=== PATIENT | female | born 1975 | race Caucasian/White ===

== ENCOUNTER 2017-07-10 07:00 | Emergency (ER) | payer BC ==
[2017-07-10 07:25] VITALS: BP 91/60
--- NOTE | 2017-07-10 07:34 | UC ---
Abdominal Pain Female HPI - HPI Summary HPI Summary: 41 yo female with the acute onset yesterday afternoon of nausea/epigastric pain , f/c and mild WHITING was up all night 8/10 pain at max currently 08/27 - History of Current Complaint Chief Complaint: UCGeneralIllness Stated Complaint: ACHES, WHITING, STOMACH ACHE Time Seen by Provider: 07/10/17 07:26 Hx Obtained From: Patient Hx Last Menstrual Period: 06/30/17 Onset/Duration: Sudden Onset, Lasting Hours Timing: Constant Severity Initially: Moderate Severity Currently: Moderate Pain Intensity: 5 Pain Scale Used: 0-10 Numeric Location: Discrete At: LUQ, Epigastric Radiates: Yes Radiates to: Back Character: Aching Aggravating Factor(s): Movement Alleviating Factor(s): Nothing Associated Signs and Symptoms: Positive: Fever, Nausea, Diarrhea - loose stool x 1 Allergies/Adverse Reactions: Allergies Allergy/AdvReac Type Severity Reaction Status Date / Time No Known Allergies Allergy Verified 07/10/17 07:16 Home Medications: Home Medications NK [No Home Medications Reported] 07/10/17 [History Confirmed 07/10/17] PMH/Surg Hx/FS Hx/Imm Hx Previously Healthy: Yes - Surgical History Surgical History: Yes Surgery Procedure, Year, and Place: L 4th finger for fracture. - Family History Known Family History: Positive: Cardiac Disease, Hypertension, Diabetes - Social History Alcohol Use: Rare Substance Use Type: None Smoking Status (MU): Never Smoked Tobacco Review of Systems Constitutional: Fever, Chills, Fatigue Skin: Negative Eyes: Negative ENT: Negative Respiratory: Negative Cardiovascular: Negative Gastrointestinal: Abdominal Pain, Diarrhea - loose stool x 1, Nausea Genitourinary: Negative Motor: Negative Neurovascular: Negative Musculoskeletal: Myalgia Neurological: Headache Psychological: Negative Is Patient Immunocompromised?: No All Other Systems Reviewed And Are Negative: Yes Physical Exam Triage Information Reviewed: Yes Appearance: Well-Appearing, No Pain Distress, Well-Nourished, Thin Vital Signs: Initial Vital Signs Temp 99.9 F 07/10/17 07:17 Pulse 85 07/10/17 07:17 Resp 16 07/10/17 07:17 BP 91/60 07/10/17 07:17 Pulse Ox 99 07/10/17 07:17 Vital Signs Reviewed: Yes Eyes: Positive: Conjunctiva Clear ENT: Positive: Hearing grossly normal, Uvula midline. Negative: Nasal congestion, Nasal drainage, Trismus, Muffled voice Neck: Positive: Supple, Nontender, No Lymphadenopathy Respiratory: Positive: Lungs clear, Normal breath sounds, No respiratory distress, No accessory muscle use Cardiovascular: Positive: RRR, No Murmur Abdomen Description: Positive: Soft, Other: - epigastric and LUQ tenderness. Negative: Nontender Bowel Sounds: Positive: Present Musculoskeletal: Positive: ROM Intact, No Edema Neurological: Positive: Alert Psychological Exam: Normal Skin Exam: Normal Abd Pain Female Course/Dx - Course Course Of Treatment: discussed with Dr. James. to [facility] via POV. pt declines EMS - Differential Dx/Diagnosis Provider Diagnoses: abdominal pain of uncertain cause Discharge - Sign-Out/Discharge Documenting (check all that apply): Discharge - Discharge Plan Condition: Stable Disposition: [facility] Referrals: Christy Ferro MD [Primary Care Provider] - Additional Instructions: I spoke to the ER attending at [facility] (Dr. James) They are expecting you - Billing Disposition and Condition Condition: STABLE Disposition: EMTALA
== END 2017-07-10 07:55 | disposition short-term general hospital (02) ==
LOC: UCCORT 07:00
DX: R10.13 Epigastric pain (principal); R10.12 Left upper quadrant pain; Z32.02 Encounter for pregnancy test, result negative
CPT/HCPCS: 81003; 84702; 99201; G0463

== ENCOUNTER 2018-03-06 15:35 | Emergency (ER) | payer BC ==
[2018-03-06 15:52] VITALS: BP 122/68
--- NOTE | 2018-03-06 15:58 | UC ---
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 -pain/pressure over her eyes x > 10 d. no fevers. + cough, no wheezing, no asthma. -burn was on an iron. no blistreing. no dc. healing well. has a small irritation from the adhesive of mara bandage she has covering -also brings up depression. talked to her PCP Dr Iqbal about it in 08/05. she declined meds at that time and wanted to try wholistic approac. she has not been active as she always has been. significant fatigue. doesnt look forward to going to her job anymore. she has worked very hard at her career. 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 her family is in [place]. she moved from [place], [place] and [facility] back to here to be closer to family. does not have a counselor here, but would like to see one. had one in [place] in past. no SI/HI. she took 2 days of lexapro and broke into a rash ~ 2 yrs ago. would be willingto take medicine again. - History of Current Complaint Chief Complaint: UCGeneralIllness Stated Complaint: CONGESTION, COUGH, SORE THROAT Time Seen by Provider: 03/06/18 15:55 Hx Last Menstrual Period: 02/08/18 Pain Intensity: 0 - Allergies/Home Medications Allergies/Adverse Reactions: Allergies Allergy/AdvReac Type Severity Reaction Status Date / Time No Known Allergies Allergy Verified 03/06/18 15:52 PMH/Surg Hx/FS Hx/Imm Hx Previously Healthy: Yes Psychological History: Depression - Surgical History Surgical History: Yes Surgery Procedure, Year, and Place: L 4th finger for fracture. - Family History Known Family History: Positive: Cardiac Disease, Hypertension, Diabetes - Social History Alcohol Use: Rare Substance Use Type: None Smoking Status (MU): Never Smoked Tobacco Review of Systems All Other Systems Reviewed And Are Negative: Yes Constitutional: Positive: Fatigue Skin: Positive: Negative Eyes: Positive: Negative ENT: Positive: Sinus Congestion, Sinus Pain/Tenderness Respiratory: Positive: Cough Cardiovascular: Positive: Negative Gastrointestinal: Positive: Negative Genitourinary: Positive: Negative Motor: Positive: Negative Neurovascular: Positive: Negative Musculoskeletal: Positive: Negative Neurological: Positive: Negative Psychological: Positive: Depressed Is Patient Immunocompromised?: No Physical Exam Triage Information Reviewed: Yes Appearance: Well-Appearing, No Pain Distress, Well-Nourished - very pleasant and articulate Vital Signs: Initial Vital Signs Temp 98.5 F 03/06/18 15:48 Pulse 72 03/06/18 15:48 Resp 15 03/06/18 15:48 BP 122/68 03/06/18 15:48 Pulse Ox 100 03/06/18 15:48 Vital Signs Reviewed: Yes Eye Exam: Normal ENT: Positive: Hearing grossly normal, Pharyngeal erythema - mild w/ + PND, Nasal congestion, Nasal drainage, TMs normal, Sinus tenderness - + b/l frontal. Negative: Tonsillar swelling, Tonsillar exudate Dental Exam: Normal Neck exam: Normal Neck: Positive: Supple, Nontender, No Lymphadenopathy Respiratory Exam: Normal Respiratory: Positive: Lungs clear, Normal breath sounds, No respiratory distress, No accessory muscle use - mild cough. speaks full senetnces. Negative : Crackles, Rhonchi, Stridor, Wheezing Cardiovascular Exam: Normal Cardiovascular: Positive: RRR, No Murmur Abdomen Description: Positive: Nontender, Soft Musculoskeletal Exam: Normal Neurological Exam: Normal Psychological Exam: Normal Skin: Positive: Other - rt forearm w/ 2 cm superficial linear burn. no d/c. no streaks. no surrounding erythema. cool to touch. healing nicely. Throat Pain/Nasal Course/Dx - Course Course Of Treatment: Sinsuitis w/ pressure x 2 wks - amox & probiotic. Bronchitis - viral, alb MDI. instructions given. rt arm - superficial burn - silvedene prn. Depression- would benefit from medication and therapy. she is agreeable. but will defer to PCP b/c possible allergic rash and need for close f /u. name of therapist provided. - Differential Dx/Diagnosis Differential Diagnosis/HQI/PQRI: Sinusitis, URI Provider Diagnoses: sinusitis, bronchitis, rt arm superficial burn, depression Discharge - Sign-Out/Discharge Documenting (check all that apply): Patient Departure All imaging exams completed and their final reports reviewed: No Studies - Discharge Plan Condition: Stable Disposition: HOME Prescriptions: Albuterol HFA INHALER* [Ventolin HFA Inhaler*] 2 puff INH Q4H PRN 14 Days #1 mdi PRN Reason: Cough Amoxicillin PO (*) [Amoxicillin 875 MG (*)] 875 mg PO BID #20 tab Silver Sulfadiazine [Silvadene] 25 gm TP BID 14 Days #30 cream..g. Patient Education Materials: Sinusitis (ED), Depression (ED), Acute Bronchitis (ED), Superficial Burn (DC) Referrals: Mae Iqbal MD [Primary Care Provider] - Additional Instructions: -Make sure to take a probiotic daily while on antibiotics to help prevent a potential complication of antibiotic use called c diff. Some well known brands that can be found OTC are Numarior, OneMln and Pixta. Make sure to complete the entire prescription unless advised otherwise by your health care provider. -Albuterol inhaler may help your cough as well. -You can use OTC hydrocortisone cream for the area of irritation around the bandage. -We talked about the benefit of therapy and medication for the depression for which follow up with Dr Iqbal will be helpful. -Shabnam Young is a therapist on [facility] that may be helpful to you. - Billing Disposition and Condition Condition: STABLE Disposition: Home
== END 2018-03-06 17:30 | disposition home or self-care (01) ==
LOC: UCCORT 15:35
DX: J32.9 Chronic sinusitis, unspecified (principal); J40 Bronchitis, not specified as acute or chronic; T22.111A Burn of first degree of right forearm, initial encounter; T31.0 Burns involving less than 10% of body surface; X15.8XXA Contact with other hot household appliances, initial encounter; Y92.9 Unspecified place or not applicable; F32.9 Major depressive disorder, single episode, unspecified
CPT/HCPCS: 99212; G0463

== ENCOUNTER 2018-12-06 21:20 | Emergency (ER) | payer BC ==
[2018-12-06 21:30] VITALS: BP 107/52
--- NOTE | 2018-12-06 21:30 | UC ---
Cardiac HPI - HPI Summary HPI Summary: 43-year-old woman comes in with a chief complaint of chest pain. She describes it as pressure and squeezing. Worse is a 7 out of 10. Does radiate up into the shoulder. She has feel like she can't catch her breath completely. She's had at least for these episodes today each lasting several minutes. No nausea and no sweating. She has no history of high blood pressure high cholesterol or diabetes. 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 Patient reported some palpitations today and some lightheadedness also. - History of Current Complaint Stated Complaint: CHEST PAIN Time Seen by Provider: 12/06/18 21:23 Hx Last Menstrual Period: 02/08/18 - Allergy/Home Medications Allergies/Adverse Reactions: Allergies Allergy/AdvReac Type Severity Reaction Status Date / Time naproxen [From Aleve] Allergy Itching Verified 12/06/18 21:30 Home Medications: Home Medications NK [No Home Medications Reported] 12/06/18 [History Confirmed 12/06/18] PMH/Surg Hx/FS Hx/Imm Hx Previously Healthy: Yes - Surgical History Surgical History: Yes Surgery Procedure, Year, and Place: L 4th finger for fracture. - Family History Known Family History: Positive: Cardiac Disease, Hypertension, Diabetes - Social History Alcohol Use: Rare Substance Use Type: None Smoking Status (MU): Never Smoked Tobacco Review of Systems All Other Systems Reviewed And Are Negative: Yes Constitutional: Positive: Other - SEE HPI Skin: Positive: Negative Eyes: Positive: Negative ENT: Positive: Negative Respiratory: Positive: Shortness Of Breath Cardiovascular: Positive: Palpitations, Chest Pain Gastrointestinal: Positive: Negative Motor: Positive: Negative Neurovascular: Positive: Negative Musculoskeletal: Positive: Negative Neurological: Positive: Negative Psychological: Positive: Anxious Is Patient Immunocompromised?: No Physical Exam Triage Information Reviewed: Yes Appearance: Well-Appearing, No Pain Distress, Well-Nourished Vital Signs Reviewed: Yes Eye Exam: Normal Eyes: Positive: Conjunctiva Clear Neck: Positive: Supple Respiratory: Positive: Lungs clear, Normal breath sounds, No respiratory distress Cardiovascular: Positive: RRR Abdomen Description: Positive: Nontender, Soft Musculoskeletal: Positive: Strength Intact, ROM Intact, No Edema - NO CALF TENDERNESS Neurological: Positive: Alert Psychological: Positive: Age Appropriate Behavior Skin Exam: Normal Diagnostics - EKG Cardiac Rate: Bradycardia - AT 2126 Cardiac Rhythm: Sinus: Normal - 58BPM Ectopy: None ST Segment: Normal - Assessment/Plan Course Of Treatment: Do not see any ischemia on the EKG. Discussed the results with the patient. I recommended further evaluation in the emergency department. Patient would like to go by POV. She was given aspirin 324 mg by mouth here in clinic. I spoke with Marycruz at [place] emergency department. - Clinical Impression Provider Diagnosis: Chest pain Discharge - Sign-Out/Discharge Documenting (check all that apply): Patient Departure All imaging exams completed and their final reports reviewed: No Studies - Discharge Plan Condition: Stable Disposition: HOME-RECOMMEND TO ED Patient Education Materials: Chest Pain (ED) Referrals: Mae Iqbal MD [Primary Care Provider] - Additional Instructions: GO DIRECTLY TO THE EMERGENCY DEPARTMENT FOR FURTHER EVALUATION OF YOUR CHEST PAIN. - Billing Disposition and Condition Condition: STABLE Disposition: Home-Recommend to ED
[2018-12-06] MEDS ORDERED: Aspirin 81 mg CHEW TAB* 81 MG TAB.CHEW PO ONE (21:47)
== END 2018-12-06 22:01 | disposition home health service (06) ==
LOC: UCCORT 21:20
DX: R07.9 Chest pain, unspecified (principal)
CPT/HCPCS: 93005; 99212; A9270-GY; G0463